=== PATIENT | male | born 1995 | race African-American/Black ===

== ENCOUNTER 2021-01-27 03:19 | Emergency (ER) | payer OTHER ==
[~2021-01-27] VITALS: Ht 167.6 cm; Wt 77.1 kg
[2021-01-27 03:20] VITALS: BP 155/104
== END 2021-01-27 04:41 | disposition left against medical advice (07) ==
LOC: ER 03:19
DX: R11.2 Nausea with vomiting, unspecified (principal); R05.9 Cough, unspecified; Z53.21 Procedure and treatment not carried out due to patient leaving prior to being seen by health care provider

== ENCOUNTER 2021-01-27 07:57 | Emergency (ER) | payer OTHER ==
[~2021-01-27] VITALS: Ht 167.6 cm; Wt 81.6 kg
[2021-01-27 10:37] LABS: Basophils # (auto) 0 10 ^3/uL (0-0.2); Basophils % (auto) 0.5 % (0.0-2.0); Eosinophils # (auto) 0 10 ^3/uL (0-0.8); Eosinophils % (auto) 0.3 % (0.0-7.0); Hematocrit 49.3 % (41.0-53.0); Hemoglobin 16.9 g/dL (13.5-17.5); Lymphocytes # (auto) 0.7 10 ^3/uL (0.4-5.4); Mean Corpuscular Hgb Conc. 34.2 g/dL (32.0-36.0); Mean Corpuscular Volume 93.6 fL (80.0-100.0); Monocytes # (auto) 0.4 10 ^3/uL (0-1.3); Monocytes % (auto) 4.7 % (0.0-12.0); Neutrophils # (auto) 8.4 10 ^3/uL (1.6-8.6); Neutrophils % (auto) 87.5 % (37.0-80.0); Nucleated Red Blood Cells % 0.1 %; Red Blood Cells 5.26 10^6/uL (4.5-5.90); Red Cell Distribution Width 14.5 % (11.8-14.3); White Blood Cell 9.6 10^3/uL (4.4-10.8)
[2021-01-27 11:19] LABS: Potassium 4.3 mmol/L (3.5-5.1)
[2021-01-27] MEDS ORDERED: SODIUM CHLORIDE 0.9% 1,000 ML IV ONE (11:30)
[2021-01-27] MEDS ORDERED: SODIUM CHLORIDE 0.9% 500 ML IVB ONE (11:30)
[2021-01-27] MEDS ORDERED: ONDANSETRON HCL 4 MG/2 ML VIAL IV ONE (11:30)
[2021-01-27 11:31] LABS: Albumin 3.4 g/dL (3.4-5.0); Bilirubin, Total 0.4 mg/dL (0.2-1.0); Calcium 9.1 mg/dL (8.5-10.1); Total Protein 7.6 g/dL (6.4-8.2)
[2021-01-27] MEDS ORDERED: metroNIDAZOLE 500MG/100ML 100 ML IV ONE ×2 (16:00)
[2021-01-27] MEDS ORDERED: cefTRIAXone 1GM/50ML D5W 50 ML IV ONE (16:00)
[2021-01-27 16:27] LABS: Urine Bacteria NONE SEEN /hpf (None Seen); Urine Blood Negative /uL (Negative); Urine Specific Gravity 1.012 (1.001-1.035); Urine WBC <1 /hpf (0 - 3)
[2021-01-28 02:13] VITALS: BP 142/66
== END 2021-01-28 02:26 | disposition short-term general hospital (02) ==
LOC: ER 07:57
DX: K37 Unspecified appendicitis (principal); J18.9 Pneumonia, unspecified organism; N13.30 Unspecified hydronephrosis; Q90.9 Down syndrome, unspecified; Z20.822 Contact with and (suspected) exposure to COVID-19
CPT/HCPCS: 36415; 71046; 74176; 80053; 81001; 83690; 83735; 84443; 85025; 87040; 87426; 96361; 96365; 96366; 96368; 96375; 99285; J0696; J2405; J3490; J7030; J7040